=== PATIENT | female | born 1955 | race Caucasian/White ===

== ENCOUNTER 2020-10-23 20:59 | Inpatient (IN) | payer MEDICAID, SELFPAY ==
[~2020-10-23] VITALS: Ht 157.5 cm; Wt 74.6 kg
[2020-10-23 21:03] VITALS: BP 125/69
--- NOTE | 2020-10-23 21:11 | NUR ---
PT SENT TO LOBBY
--- NOTE | 2020-10-23 22:22 | NUR ---
PT TAKEN TO RADIOLOGY
[2020-10-23 22:31] LABS: BASOPHILS % (AUTO) 0.9 % (0.0-2.0); EOSINOPHILS # (AUTO) 0.1 K/uL (0-0.4); EOSINOPHILS % (AUTO) 2.4 % (0.0-4.0); LYMPHOCYTES # (AUTO) 0.8 K/uL (2.5-16.5); LYMPHOCYTES % (AUTO) 22.2 % (20.5-51.1); MEAN CORPUSCULAR HEMOGLOBIN 24 pg (27-31); MEAN CORPUSCULAR HGB CONC 31 g/dL (33-37); MEAN CORPUSCULAR VOLUME 75.2 fL (80-94); MONOCYTES # (AUTO) 0.4 K/uL (0.8-1.0); MONOCYTES % (AUTO) 10.8 % (1.7-9.3); NEUTROPHILS # (AUTO) 2.2 K/uL (1.8-7.7); NEUTROPHILS % (AUTO) 63.7 % (42.2-75.2); PLATELET COUNT (AUTO) 123 K/uL (140-450); RED BLOOD CELL COUNT(AUTO) 2.53 MIL/uL (4.20-5.40); RED CELL DISTRIBUTION WIDTH 19.3 % (11.6-13.7); WHITE BLOOD COUNT (AUTO) 3.5 K/uL (4.8-10.8)
--- NOTE | 2020-10-23 22:38 | NUR ---
PT RETURN FROM CT
[2020-10-23 22:44] LABS: PROTHROMBIN TIME 10.2 secs (10.8-13.4)
[2020-10-23 22:46] LABS: ALBUMIN 3.4 g/dL (3.4-5.0); ANION GAP 10.4 (8-16); CARBON DIOXIDE 27.1 mmol/L (21-32); CREATININE 0.9 mg/dL (0.6-1.3); POTASSIUM 3.5 mmol/L (3.5-5.1); TOTAL BILIRUBIN 0.5 mg/dL (0.0-1.0)
[2020-10-24] MEDS ORDERED: MORPHINE SULFATE 4 MG/ML SYR IVP ONE (00:05)
--- NOTE | 2020-10-24 00:30 | NUR ---
MEDICATED PER ERMDS ORDER, TOLERATED WELL
--- NOTE | 2020-10-24 02:10 | NUR ---
STARTED BLOOD TRANFUSION, VITAL SIGN TAKEN,INFUSING WELL, NO ADVERSE REACTIONS, NOTED
--- NOTE | 2020-10-24 03:10 | NUR ---
SWAB FOR DALIA SENT TO LAB
[2020-10-24] MEDS ORDERED: PANT40EC PO (04:04)
--- NOTE | 2020-10-24 04:20 | NUR ---
Clarisa barboza in [facility] - 10/24/20 at 0600 by RAHEEL STARTED ANOTHER BAG OF BLOOD PACKED CELLS,VITAL SIGNS STABLE , AFEBRILE, NO ADVERSE REACTIONS
--- NOTE | 2020-10-24 04:20 | NUR ---
STARTED THE SECOND BAG OF BLOOD PACKED CELLS, VITAL SIGNS STABLE , NO ADVERSE REACTIONS NOTED, AFEBRILE.
--- NOTE | 2020-10-24 04:30 | NUR ---
Patient appears to be resting comfortably in bed. Vital Signs within normal limits. Respirations even and unlabored.
--- NOTE | 2020-10-24 06:20 | NUR ---
BLOOD TRANSFUSION DONE , NO REACTIONS NOTED ,PATIENT STILL SLEEPING COMFORTABLE, VITALSIGNS WITH IN NORMAL LIMITS.
--- NOTE | 2020-10-24 07:10 | NUR ---
REPORT GIVEN TO HANS MUKHERJEE , FOR CONTINUITY OF CARE
--- NOTE | 2020-10-24 07:11 | NUR ---
RECEIVED REPORT FROM YAZ PEACE. TRANSFER OF CARE AT THIS TIME.
[2020-10-24] MEDS ORDERED: LORazepam 2 MG/ML VIAL IM/IVP PRN (07:30)
[2020-10-24] MEDS ORDERED: HYDROcodone/APAP 5/325 MG 1 TAB TAB PO PRN (07:30)
[2020-10-24] MEDS ORDERED: DOCUSATE SODIUM 100 MG GELCAP PO PRN (07:30)
[2020-10-24] MEDS ORDERED: MAG SULF 2000 MG/WATER PREMIX 50 ML IV PRN (07:30)
[2020-10-24] MEDS ORDERED: ZOLPIDEM 5 MG TAB PO PRN (07:30)
[2020-10-24] MEDS ORDERED: ONDANSETRON 4 MG/2 ML VIAL IVP PRN (07:30)
[2020-10-24] MEDS ORDERED: MORPHINE SULFATE 2 MG/ML SYR IVP PRN (07:30)
[2020-10-24] MEDS ORDERED: SODIUM PHOS / POTASSIUM PHOS 1 PKT PDR PO PRN (07:30)
[2020-10-24] MEDS ORDERED: POTASSIUM CHLORIDE 10 MEQ TABER PO PRN (07:30)
[2020-10-24] MEDS ORDERED: NACL 0.9% 1,000 ML IV SCH (07:30)
--- NOTE | 2020-10-24 07:36 | NUR ---
PT SLEEPING, VISIBLE EQUAL RISE AND FALL OF CHEST, VSS WILL CONTINUE TO MONITOR.
[2020-10-24] MEDS ORDERED: PANTOPRAZOLE 40 MG INJ VIAL IVP SCH (09:00)
[2020-10-24] MEDS ORDERED: cefTRIAXone 1,000 MG VIAL ONE (09:06)
--- NOTE | 2020-10-24 09:07 | NUR ---
PATIENT HAS BEEN SCREENED AND CATEGORIZED HIGH NUTRITION RISK. PATIENT WILL BE SEEN WITHIN 1-2 DAYS OF ADMISSION. 10/24/20-10/25/[address] Addendum: 10/24/20 at [address] PATIENT WAS RESCREENED LOW NUTRITION RISK FOR 1 GI BLEED WITH 1 EPISODE OF BLOODY VOMITUS PER H&P NOTE.
--- NOTE | 2020-10-24 10:37 | NUR ---
PT HOB ELEVATED, AWAKE AND ALERT, VSS, WILL CONTINUE TO MONITOR.
--- NOTE | 2020-10-24 12:11 | NUR ---
PT AMBULATED TO RESTROOM WITH A STEADY GAIT.
--- NOTE | 2020-10-24 12:16 | NUR ---
PT AMBULATED TO ER BED 2 WITH A STEADY GAIT.
--- NOTE | 2020-10-24 12:23 | NUR ---
DAUGHTER DONNA PARKER [phone]
--- NOTE | 2020-10-24 13:37 | NUR ---
CLOTH TRIMMER HAND AT PT BEDSIDE.
--- NOTE | 2020-10-24 13:55 | NUR ---
PT HOB LOWERED FOR COMFORT, VSS, WILL CONTINUE TO MONITOR.
--- NOTE | 2020-10-24 14:35 | NUR ---
OBTAINED CONSENT FOR EGD PER VERBAL ORDER FROM DR. MAK, PLACED IN PT CHART.
[2020-10-24] MEDS ORDERED: MIDAZOLAM 5 MG/5 ML VIAL ONE (14:41)
[2020-10-24] MEDS ORDERED: fentaNYL citrate 0.05 MG/ML VIAL ONE (14:41)
[2020-10-24] MEDS ORDERED: diphenhydrAMINE 50 MG/ML VIAL ONE (14:41)
--- NOTE | 2020-10-24 14:52 | NUR ---
PT TAKEN TO GI AB VIA 2 RN VIA NA.
[2020-10-24 15:09] LABS: CHOL/HDL RATIO 3.7 (1-4.5); FREE T4 (FREE THYROXINE) 1.18 ng/dL (0.76-1.46); PHOSPHORUS 2.8 mg/dL (2.5-4.9); THYROID STIMULATING HORMONE 3.34 uIU/mL (0.34-3.74)
[2020-10-24 15:13] LABS: ALBUMIN 3.1 g/dL (3.4-5.0); ANION GAP 16.9 (8-16); CARBON DIOXIDE 22.8 mmol/L (21-32); CREATININE 0.7 mg/dL (0.6-1.3); POTASSIUM 3.7 mmol/L (3.5-5.1); TOTAL BILIRUBIN 0.7 mg/dL (0.0-1.0)
[2020-10-24 15:16] LABS: EOSINOPHILS # (AUTO) 0.5 K/uL (0-0.4); EOSINOPHILS % (AUTO) 21.5 % (0.0-4.0); HEMATOCRIT 28.2 % (36-48); HEMOGLOBIN 9.1 g/dL (12.0-16.0); LYMPHOCYTES # (AUTO) 0.3 K/uL (2.5-16.5); LYMPHOCYTES % (AUTO) 15.4 % (20.5-51.1); MEAN CORPUSCULAR HEMOGLOBIN 26 pg (27-31); MEAN CORPUSCULAR HGB CONC 32 g/dL (33-37); MEAN CORPUSCULAR VOLUME 80.3 fL (80-94); MONOCYTES # (AUTO) 0.2 K/uL (0.8-1.0); MONOCYTES % (AUTO) 9.4 % (1.7-9.3); NEUTROPHILS # (AUTO) 1.2 K/uL (1.8-7.7); NEUTROPHILS % (AUTO) 52.7 % (42.2-75.2); PLATELET COUNT (AUTO) 92 K/uL (140-450); RED BLOOD CELL COUNT(AUTO) 3.51 MIL/uL (4.20-5.40); RED CELL DISTRIBUTION WIDTH 20.7 % (11.6-13.7); WHITE BLOOD COUNT (AUTO) 2.2 K/uL (4.8-10.8)
[2020-10-24] MEDS: PANTOPRAZOLE 40 MG INJ VIAL IVP SCH (15:35)
[2020-10-24] MEDS ORDERED: NACL 0.9% 500 ML IV SCH (15:41)
[2020-10-24 16:00] VITALS: BP 146/62
--- NOTE | 2020-10-24 16:00 | NUR ---
PT CAME TO THE UNIT FROM OR VIA GURNEY, DIRECTED TO THE ROOM, PROVIDED BELONGINGS, AND CHANGED IN TO THE GOWN, CONNECTED TO THE IV, PROVIDED BLANKET. MRSA SAMPLE IS TAKEN, FAMILY IS PRESENT AT THE BED SIDE. CALL LIGHT IS IN REACH, SAFETY MEASURES ARE IN PLACED. NO SOB NOTED, VITALS ARE WITH IN NORMAL LIMITS. WILL CONTINUE TO MONITOR PT FOR GI BLEEDING.
[2020-10-24] MEDS ORDERED: MIDAZOLAM 2 MG/2 ML VIAL IVP ONE (16:15)
[2020-10-24] MEDS ORDERED: fentaNYL citrate 0.05 MG/ML VIAL IVP ONE (16:15)
[2020-10-24 17:08] VITALS: BP 146/62
[2020-10-24] MEDS: FERROUS SULFATE 325 MG TABEC PO SCH (17:22)
--- NOTE | 2020-10-24 19:30 | NUR ---
RECEIVED BEDSIDE REPORT FROM DAY RN REGARDING THE PATIENT FOR CONTINUITY OF CARE. RECEIVED PATIENT A/A/OX4. PT LAYING IN BED AND NO SIGN AND SYMPTOMS OF DISTRESS NOTED. PT IS COMPLAINING OF ABDOMINAL PAIN AND NAUSEA. WILL GIVE PRN MEDS ORDERED. CALL LIGHT WITHIN REACH. WILL CONTINUE POC.
[2020-10-24 20:00] VITALS: BP 138/73
[2020-10-24] MEDS: SENNA 8.6 MG TAB PO SCH (20:46)
[2020-10-24] MEDS: LACTULOSE 20 GM/30 ML UDC PO SCH (20:46)
[2020-10-24] MEDS: PROPRANOLOL 20 MG TAB PO SCH (20:50)
--- NOTE | 2020-10-24 22:00 | NUR ---
DUE MEDS GIVEN AND PATIENT TOLERATED IT WELL. NO ADVERSE DRUG REACTION NOTED. NO COMPLAIN FROM THE PATIENT. WILL CONTINUE TO OBSERVE THE PT.
[2020-10-25] VITALS: BP 116/56
--- NOTE | 2020-10-25 01:05 | NUR ---
ENDORSED PATIENT TO YAZ ROMERO FOR CONTINUITY OF CARE. PATIENT STABLE. SIGNING OFF.
--- NOTE | 2020-10-25 01:10 | NUR ---
RECEIVED REPORT FROM SARAH RN FOR CONTINUITY OF CARE. PT RESTING WITH EYES CLOSED. NO APPARENT S/S OF ACUTE DISTRESS. BREATHING EVEN AND UNLABORED. BED IN LOW/LOCKED POSITION. CALL LIGHT WITHIN REACH. WILL CONTINUE TO MONITOR.
[2020-10-25 04:00] VITALS: BP 125/62
--- NOTE | 2020-10-25 07:06 | NUR ---
REPORT GIVEN TO OSIEL MUKHERJEE FOR CONTINUITY OF CARE. PT SITTING UP AAOX4. NO APPARENT S/S OF ACUTE DISTRESS. BREATHING EVEN AND UNLABORED. BED IN LOW/LOCKED POSITION. CALL LIGHT WITHIN REACH. ALL NEEDS MET AT THIS TIME.
[2020-10-25 07:08] LABS: HEPATITIS A ANTIBODY IGM Negative (Negative); HEPATITIS B CORE AB TOTAL Negative (Negative); HEPATITIS B SURFACE ANTIBODY Non Reactive (.); HEPATITIS B SURFACE ANTIGEN Negative (Negative)
[2020-10-25 07:32] LABS: PROTHROMBIN TIME 10.1 secs (10.8-13.4)
[2020-10-25 07:37] LABS: EOSINOPHILS # (AUTO) 0.1 K/uL (0-0.4); EOSINOPHILS % (AUTO) 2.5 % (0.0-4.0); HEMATOCRIT 27.8 % (36-48); HEMOGLOBIN 9.1 g/dL (12.0-16.0); LYMPHOCYTES # (AUTO) 0.7 K/uL (2.5-16.5); MEAN CORPUSCULAR HEMOGLOBIN 26 pg (27-31); MEAN CORPUSCULAR HGB CONC 33 g/dL (33-37); MEAN CORPUSCULAR VOLUME 80.5 fL (80-94); MONOCYTES # (AUTO) 0.3 K/uL (0.8-1.0); MONOCYTES % (AUTO) 10.7 % (1.7-9.3); NEUTROPHILS # (AUTO) 1.8 K/uL (1.8-7.7); NEUTROPHILS % (AUTO) 62.8 % (42.2-75.2); PLATELET COUNT (AUTO) 96 K/uL (140-450); RED BLOOD CELL COUNT(AUTO) 3.45 MIL/uL (4.20-5.40); WHITE BLOOD COUNT (AUTO) 2.9 K/uL (4.8-10.8)
[2020-10-25 07:58] LABS: ANION GAP 13.1 (8-16); CARBON DIOXIDE 25.6 mmol/L (21-32); CREATININE 0.7 mg/dL (0.6-1.3); POTASSIUM 3.7 mmol/L (3.5-5.1); TOTAL BILIRUBIN 0.8 mg/dL (0.0-1.0)
[2020-10-25 08:00] VITALS: BP 114/57
[2020-10-25 08:07] LABS: FOLIC ACID 13.2 ng/mL (>3.0)
[2020-10-25] MEDS: PROPRANOLOL 20 MG TAB PO SCH ×3 (09:54→17:00)
[2020-10-25] MEDS: FERROUS SULFATE 325 MG TABEC PO SCH ×3 (09:55→17:00)
[2020-10-25] MEDS: SENNA 8.6 MG TAB PO SCH (09:55)
[2020-10-25] MEDS: PANTOPRAZOLE 40 MG INJ VIAL IVP SCH (09:55)
[2020-10-25] MEDS: SPIRONOLACTONE 25 MG TAB PO SCH (09:55)
[2020-10-25] MEDS: LACTULOSE 20 GM/30 ML UDC PO SCH ×2 (09:55→20:32)
--- NOTE | 2020-10-25 09:56 | NUR ---
SCHEDULED MEDICATIONS DUE GIVEN. WILL CONTINUE TO MONITOR.
--- NOTE | 2020-10-25 11:57 | NUR ---
DC PLAN[age] YRS OLD FEMALE PATIENT WAS ADMITTED FROM HOME WITH A DX OF GASTROINTESTINAL BLEED AND ANEMIA. H/H 6.0/19.0 ON ADMISSION. ADMINISTERED 2 UNITS OF PRBC H/H 9.1/27.8 RAPID COVID TEST NEGATIVE. CT ABD SHOWED NO BOWEL OBSTRUCTION. ABD US SHOWED SMALL RIGHT PLEURAL EFFUSION. ADMINISTERED IVF, IV ABX ROCEPHIN. CONSULTED WITH GI FOR POSSIBLE EGD AND COLONOSCOPY. DC PLAN TO GO HOME WHEN STABLE. CM TO FOLLOW
[2020-10-25 12:00] VITALS: BP 133/70
--- NOTE | 2020-10-25 12:26 | NUR ---
SCHEDULED MEDICATIONS DUE GIVEN. WILL CONTINUE TO MONITOR.
[2020-10-25 16:00] VITALS: BP 125/67
--- NOTE | 2020-10-25 18:17 | NUR ---
SCHEDULED MEDICATIONS DUE GIVEN. WILL CONTINUE TO MONITOR.
[2020-10-25] MEDS: ACETAMINOPHEN 325 MG TAB PO PRN (18:58)
--- NOTE | 2020-10-25 19:26 | NUR ---
GAVE REPORT TO LEASE BUYER NURSE FOR CONTINUITY OF CARE. PATIENT IN STABLE CONDITION.
--- NOTE | 2020-10-25 19:30 | NUR ---
RECEIVED REPORT FROM OSIEL MUKHERJEE FOR CONTINUITY OF CARE. PT SITTING UP AAOX4. NO APPARENT S/S OF ACUTE DISTRESS. BREATHING EVEN AND UNLABORED ON RA WITH O2 SAT OF 97%. NO C/O CP, SOB OR ABD PAIN. R WRIST 22G AND R AC 20G IVL, INTACT/PATENT. POC AND WHITE COMMUNICATION BOARD UPDATED. BED IN LOW/LOCKED POSITION. CALL LIGHT WITHIN REACH. PT ENCOURAGED TO CALL FOR ANY NEEDS/ASSISTANCE. WILL CONTINUE TO MONITOR.
[2020-10-25 20:00] VITALS: BP 119/49
[2020-10-26 04:00] VITALS: BP 102/40
--- NOTE | 2020-10-26 06:53 | NUR ---
REPORT GIVEN TO LAMAR MUKHERJEE FOR CONTINUITY OF CARE. PT SITTING UP AAOX4. NO APPARENT S/S OF ACUTE DISTRESS. BREATHING EVEN AND UNLABORED. BED IN LOW/LOCKED POSITION. CALL LIGHT WITHIN REACH. ALL NEEDS MET AT THIS TIME.
--- NOTE | 2020-10-26 07:10 | NUR ---
RECEIVED REPORT FROM CONCRETE BUCKET LOADER NURSE FOR CONTINUITY OF CARE. PT IS AWAKE AND ALERT, A&OX4. ON RA WITH BREATHING UNLABORED. MS PATIENT. PT IS AMBULATORY INDEPENDENTLY. SKIN IS WARM, DRY, AND INTACT. IV IS IN THE RIGHT WRIST 22 GAUGE SALINE LOCKED AND RIGHT AC 20 GAUGE SALINE LOCKED. PT IS STABLE AT THIS TIME. PLAN OF CARE DISCUSSED.
[2020-10-26 07:36] LABS: MAGNESIUM 2.1 mg/dL (1.8-2.4); PHOSPHORUS 3.7 mg/dL (2.5-4.9)
[2020-10-26 07:38] LABS: BASOPHILS % (AUTO) 1.2 % (0.0-2.0); EOSINOPHILS # (AUTO) 0.1 K/uL (0-0.4); EOSINOPHILS % (AUTO) 2.9 % (0.0-4.0); HEMATOCRIT 29.1 % (36-48); HEMOGLOBIN 9.6 g/dL (12.0-16.0); LYMPHOCYTES # (AUTO) 0.7 K/uL (2.5-16.5); MEAN CORPUSCULAR HEMOGLOBIN 26 pg (27-31); MEAN CORPUSCULAR HGB CONC 33 g/dL (33-37); MEAN CORPUSCULAR VOLUME 78.9 fL (80-94); MONOCYTES # (AUTO) 0.4 K/uL (0.8-1.0); MONOCYTES % (AUTO) 10.6 % (1.7-9.3); NEUTROPHILS # (AUTO) 2.8 K/uL (1.8-7.7); NEUTROPHILS % (AUTO) 68.3 % (42.2-75.2); PLATELET COUNT (AUTO) 97 K/uL (140-450); RED BLOOD CELL COUNT(AUTO) 3.69 MIL/uL (4.20-5.40); RED CELL DISTRIBUTION WIDTH 20.7 % (11.6-13.7); WHITE BLOOD COUNT (AUTO) 4.1 K/uL (4.8-10.8)
[2020-10-26 08:00] VITALS: BP 112/59
[2020-10-26] MEDS: LACTULOSE 20 GM/30 ML UDC PO SCH (09:05)
[2020-10-26] MEDS: SPIRONOLACTONE 25 MG TAB PO SCH (09:06)
[2020-10-26] MEDS: FERROUS SULFATE 325 MG TABEC PO SCH ×2 (09:10→11:47)
[2020-10-26] MEDS: PROPRANOLOL 20 MG TAB PO SCH (09:10)
--- NOTE | 2020-10-26 09:30 | NUR ---
PT IS SITTING UP IN BED ON CELL PHONE. NO DISTRESS NOTED. ON RA WITH BREATHING UNLABORED. PT DENIES PAIN. IV'S ARE PATENT AND INTACT. WILL CONTINUE TO MONITOR.
[2020-10-26 09:39] VITALS: BP 112/59
--- NOTE | 2020-10-26 10:30 | NUR ---
SPOKE TO DONNA, DAUGHTER, AND INFORMED HER OF THE D/C. D/C INSTRTUCTIONS WERE PROVIDED AND FAMILY MEMBER VERBALIZED UNDERSTANDING. INFORMED DAUGHTER THAT SHE WOULD BE ABLE TO BE PICKED UP AROUND 1:30 PM. WILL CALL WHEN PT IS READY TO BE PICKED UP.
[2020-10-26] MEDS ORDERED: LACT10SO11 PO (11:22)
[2020-10-26] MEDS ORDERED: PROP20TA29 PO (11:22)
[2020-10-26] MEDS ORDERED: FER325 PO (11:22)
[2020-10-26] MEDS ORDERED: SPIR25TA PO (11:22)
[2020-10-26 11:23] LABS: ANION GAP 13.7 (8-16); CARBON DIOXIDE 25.6 mmol/L (21-32); CREATININE 0.8 mg/dL (0.6-1.3); POTASSIUM 3.3 mmol/L (3.5-5.1)
--- NOTE | 2020-10-26 11:41 | NUR ---
CALLED DR. FRIAS AND INFORMED HER THAT THE PT NEEDED A WORK NOTE. SHE OKAYED THE WORK NOTE AND WILL PUT IT IN THE DISCHARGE.
--- NOTE | 2020-10-26 11:48 | NUR ---
KDUR 40 MEQ WAS GIVEN FOR POTASSIUM LEVEL OF 3.3. MEDICATION EDUCATION WAS PROVIDED.
--- NOTE | 2020-10-26 12:38 | NUR ---
PT DISCHARGE INSTRUCTIONS WERE GIVEN AND PT VERBALIZED UNDERSTANDING. ID BAND WAS REMOVED. BOTH IV'S WERE REMOVED WELL. BLEEDING WAS CONTROLLED. PT CHANGED INTO OWN CLOTHING FROM HOME. CELL PHONE AND HADOOP ENGINEER AND PURSE ARE WITH PT. DONNA (DAUGHTER) WAS CALLED TO PRENATAL NURSE PT AND SHE STATED HER SISTER WAS ON THE WAY TO PICK HER UP. PT IS ALMOST FINISHED EATING LUNCH AT BEDSIDE. NO DISTRESS. PT DENIES NAUSEA/VOMITING. BP IS 118/87, HR 73, RR 20, TEMP 98 F, AND O2 SAT IS 96% ON RA. PT IS STABLE. WILL BE DISCHARGING SHORTLY.
[2020-10-26] MEDS: ACETAMINOPHEN 325 MG TAB PO PRN (12:51)
--- NOTE | 2020-10-26 12:53 | NUR ---
PT WAS HAVING MILD PAIN WHILE EATING LUNCH, REGULAR DIET. PT HAS EATEN 40% OF FOOD. PT WAS GIVEN TYLENOL TO HELP WITH THE PAIN. PAIN WAS STATED AT A SCALE OF 3/10. WILL CONTINUE TO MONITOR.
--- NOTE | 2020-10-26 13:15 | NUR ---
PT WAS DISCHARGED AND ESCORTED OUTSIDE BY WHEELCHAIR. PT HAD A STEADY GAIT TO THE CAR WHERE HER DAUGHTER WAS THERE TO PICK HER UP. PT IS STABLE AT THIS TIME. PT DENIES PAIN UPON DISCHARGE.
--- NOTE | 2020-10-26 15:08 | NUR ---
DC PLANNING PATIENT IS A 65-YEAR-OLD FEMALE ADMITTED ON 10/24/20 AT [facility]/ER DUE TO ABDOMINAL PAIN FOR ABOUT 3 DAYS. SW MET WITH PATIENT AT BEDSIDE TO DISCUSS AND GATHER PATIENT'S COLLATERAL INFORMATION. PATIENT IS BARBADIAN SPEAKING ONLY. PER PATIENT SHE LIVES AT HOME IN [facility] WITH HER ADULT DAUGHTERS, DONNA AND HASEEB AND A GRANDCHILD. PATIENT REPORTED BEEN ACTIVE AND INDEPENDENT AT HOME, ALSO PATIENT REPORTED NOT HAVING ADVANCE DIRECTIVES AND WAS REALLY INTERESTED ON GETTING INFORMATION PACKET PROVIDED BY SW AT THE TIME OF VISIT. PATIENT REPORTED NOT HAVING OR NEEDING DME AT HOME FOR HERSELF AND NOT HAVING ANY ISSUES WITH GETTING OR TAKING ANY OF HER MEDICATIONS. PATIENT REPORTED ABLE TO GET ALL HER MEDICATIONS WHEN PRESCRIBED BY MD AT [facility] IN [place] BY HER HOUSE. PATIENT STATED THAT HER PRIMARY DOCTOR IS MD. MCLEOD IN A CLINIC NEAR HER HOME AND REPORTED THAT SHE WILL BE MAKING HER OWN FOLLOW UP APPOINTMENT AFTER SHE DISCHARGES FROM [facility]. PATIENT STATED THAT HER DAUGHTERS WILL BE PICKING HER UP AFTER WORK TODAY AND WILL BE ASSISTING HER WITH TRANSPORTATION BACK HOME. SW WILL FOLLOW UP WITH PATIENT NEEDED.
== END 2020-10-26 13:21 | disposition home or self-care (01) | DRG 242 ==
LOC: MED 20:59 → MTU 10-24 01:21
PROVIDERS: ADMIT Family Medicine; ATTEND Family Medicine
PROC: 30233N1 Transfusion of Nonautologous Red Blood Cells into Peripheral Vein, Percutaneous Approach (ICD-10-PCS; 2020-10-24)
PROC: 0DB68ZX Excision of Stomach, Via Natural or Artificial Opening Endoscopic, Diagnostic (ICD-10-PCS; principal; 2020-10-24 15:00)
PROC: 06L38CZ Occlusion of Esophageal Vein with Extraluminal Device, Via Natural or Artificial Opening Endoscopic (ICD-10-PCS; 2020-10-24 15:00)
DX: I85.01 Esophageal varices with bleeding (principal); E83.51 Hypocalcemia; K76.6 Portal hypertension; E87.8 Other disorders of electrolyte and fluid balance, not elsewhere classified; K42.9 Umbilical hernia without obstruction or gangrene; K75.81 Nonalcoholic steatohepatitis (NASH); Z20.822 Contact with and (suspected) exposure to COVID-19; D50.0 Iron deficiency anemia secondary to blood loss (chronic); K21.9 Gastro-esophageal reflux disease without esophagitis; K74.60 Unspecified cirrhosis of liver; Z90.49 Acquired absence of other specified parts of digestive tract
CPT/HCPCS: 36415; 36430; 71045; 74160; 76700; 80048; 80053; 82105; 82150; 82607; 82728; 82746; 82977; 83036; 83540; 83690; 83735; 83880; 84100; 84439; 84443; 84484; 85025; 85045; 85610; 85730; 86677; 86704; 86706; 86708; 86709; 86803; 86886; 86900; 86901; 86920; 87081; 87340; 93005; 96365; 96375; 99285; C9113; J0696; J1200; J2250; J2270; J2405; J3010; J7030; J7060; P9016; Q0092; Q9967